=== PATIENT | male | born 1945 | race Caucasian/White ===

== ENCOUNTER 2018-12-07 03:37 | Inpatient (IN) | payer BC, OTHER ==
[2018-12-07 03:59] VITALS: BMI 27.3
--- NOTE | 2018-12-07 04:30 | PDOC ---
History of Present Illness - General Chief Complaint: Chest Pain Stated Complaint: CHEST PAIN Time Seen by Provider: 12/07/18 04:08 - History of Present Illness Initial Comments: Anthony Arredondo is a 73yo man with a PMH of HTN and HLD who presents with upper back and chest pain along with HTN to 170/99 at home today. He states that he woke up overnight with burning, aching pain along his b/l back shoulder blades. He thought it was muscle pain and tried taking a hot shower without any relief. He tried to lay down and noted that the pain had moved around into his anterior left shoulder and chest. Mr Arredondo took his BP at home and found it significantly elevated. He took his morning amlodipine, atenolol, and losartan along with 325mg ASA and came to the ED for evaluation. He notes that the pain had mostly resolved by the time he arrived, now only a slight ache in the left posterior and superior shoulder, though it was an 8/10 at worst. He was most concerned about the hypertension. He denies any associated nausea, vomiting, lightheadedness, difficulty breathing, sweating or other symptoms. He is not aware of any back or shoulder injury recently and denies any unusual activity though he does frequently do a lot of heavy lifting at work. Past History - Past Medical History Allergies/Adverse Reactions: Allergies Allergy/AdvReac Type Severity Reaction Status Date / Time No Known Allergies Allergy Verified 12/07/18 03:46 - Psycho Social/Smoking Cessation Hx Smoking History: Never smoked Have you smoked in the past 12 months: No Information on smoking cessation initiated: No Hx Alcohol Use: No Drug/Substance Use Hx: No Review of Systems - Review of Systems Comments:: General: No fevers, no chills, no weight or appetite change, no malaise HEENT: No changes in vision, no changes in hearing, no congestion, no sore throat CV: + chest pain, no palpitations, no LE edema Pulm: No SOB, no cough, no wheezing GI: No nausea or vomiting, no change in bowel habits, no melena : No frequency, no urgency, no dysuria Musc: +shoulder pain, no joint swelling, no recent injury Skin: No rash, no lesions, no erythema Endo: No excessive thirst, no heat/cold intolerance Heme: No unusual bruising or bleeding, no swollen glands Neuro: No syncope, no numbness/tingling, no focal weakness Vasc: No claudication Psych: No recent change in mood, no SI or HI *Physical Exam - Vital Signs Last Vital Signs Temp Pulse Resp BP Pulse Ox 97.9 F 64 20 155/82 98 12/07/18 03:57 12/07/18 03:57 12/07/18 03:57 12/07/18 03:57 12/07/18 03:57 - Physical Exam Comments: General: Comfortable, no acute distress HEENT: PERRL, EOMI, MMM, voice normal, normal neck ROM Cards: RRR, no murmur appreciated. No reproducible chest tenderness Pulm: Comfortable on room air, clear to auscultation bilaterally Abd: Soft, nontender, nondistended Back: No visible injury. Mildly TTP over inferior aspect of L scapula Ext: Atraumatic. No LE edema. ROM intact in BUE. WWP. Skin: Normal color, no rashes or lesions Neuro: A&Ox3, CN grossly intact, normal speech, motor/sensory grossly intact and symmetric, no focal deficits Psych: Mood appropriate to situation ED Treatment Course - LABORATORY CBC & Chemistry Diagram: 12/07/18 04:58 12/07/18 04:58 - RADIOLOGY Radiology Studies Ordered: Category Date Time Status CHEST PA & LAT [RAD] Stat Radiology 12/07/18 04:17 Ordered Medical Decision Making - Medical Decision Making 12/07/18 04:18 Anthony Arredondo is a 73yo man with a PMH of HTN and HLD who presents with upper back and chest pain along with HTN to 170/99 at home today. His pain started as 8/10 posterior shoulder pain, spread to the anterior chest, and has now mostly resolved with only mild pain in the posterior left shoulder. He denies any associated n/v, sweating, SOB or other symptoms. - Chest pain now nearly resolved and no associated symptoms, reassuring that symptoms do not represent VA but cannot rule out unstable angina. May also be musculoskeletal given majority of pain is at posterior shoulder. With significant HTN need to evaluate aorta - CBC, CMP, trop, EKG, CXR - Pt declines pain medication at this time - HTN now markedly improved to 155/82 after pt took home meds. Will monitor 12/07/18 05:39 - EKG sinus rhythem, HR 66, 1st degree block with MI 250ms, normal axis, long QRS at 114, QTc 457. Incomplete RBBB. Multiple PVC's. Pt reports known PVCs; had holter monitor in the past for evaluation. No recent EKG in chart for comparison; most recent was 2010 and at that time NSR - CXR without concerning abnormalities appreciated - Labs reviewed. Trop detectable at 0.05. Will repeat trop and EKG at 7am. 12/07/18 07:14 - Sign out given to Dr Garrett for the remainder of his ED care Discussed with Dr Maxi Roberson PGY2 Discharge - Discharge Information Problems reviewed: Yes Clinical Impression/Diagnosis: HTN (hypertension) Qualifiers: Hypertension type: unspecified Qualified Code(s): I10 - Essential (primary) hypertension Chest pain Qualifiers: Chest pain type: unspecified Qualified Code(s): R07.9 - Chest pain, unspecified - Follow up/Referral Referrals: Roe Shirley MD [Primary Care Provider] - - Patient Discharge Instructions - Post Discharge Activity
[2018-12-07 05:19] LABS: BASO % 0.8 % (0-2.0); EOS % 4.4 % (0-4.5); HEMATOCRIT 42.1 % (35.4-49); HEMOGLOBIN 14.8 GM/dL (11.7-16.9); LYMPH % 19.2 % (8-40); MCH 31.3 pg (25.7-33.7); MCHC 35.1 g/dl (32.0-35.9); MEAN CELL VOLUME 89.2 fl (80-96); MEAN PLT VOLUME 8.9 fl (7.5-11.1); MONO % 10.2 % (3.8-10.2); NEUT % 65.4 % (42.8-82.8); PLATELET COUNT 222 K/MM3 (134-434); RBC 4.72 M/mm3 (4.00-5.60); RDW 13.4 % (11.9-15.9); WHITE BLOOD COUNT 5.2 K/mm3 (4.0-10.0)
[2018-12-07 05:35] LABS: ALBUMIN 3.6 g/dl (3.4-5.0); BILIRUBIN,TOTAL 0.4 mg/dL (0.2-1); BLOOD UREA NITROGEN 24.2 mg/dL (7-18); CALCIUM 8.8 mg/dL (8.5-10.1); CREATININE 1.2 mg/dL (0.55-1.3); MAGNESIUM 2.4 mg/dL (1.8-2.4); POTASSIUM 3.8 mmol/L (3.5-5.1)
--- NOTE | 2018-12-07 05:40 | PDOC ---
Attending Attestation - Resident Resident Name: Jo Ann Roberson - ED Attending Attestation I have performed the following: I have examined & evaluated the patient, The case was reviewed & discussed with the resident, I agree w/resident's findings & plan - HPI HPI: 12/07/18 05:38 Pt comes with chest pain. - Physicial Exam PE: 12/07/18 05:38 Agree with resident exam - Medical Decision Making 12/07/18 05:38 Pt has normal labs; however first trop 0.06; though his CPK is only 64. We will repeat a 2nd trop in the AM and sign out to the day ER team. 12/07/18 05:39 CXR normal; normal mediastinum and aorta. Heart Score/ECG Review - ECG Intrepretation Rhythm: Regular Rhythm - Benge Benge: Normal - QRS Poor R Wave Progression: No Q Wave Present: No - ST and T Early Repolarization: No Non Specific ST-T Wave changes: No Flattened T Waves: No Prolonged Q-T Interval: No - ECG Impressions Normal ECG: Yes Non-specific ST Elevation: No Ischemic Changes: No Bradycardia: No Comment:: 12/07/18 05:42 PT has PVCs on EKG
--- NOTE | 2018-12-07 07:44 | PDOC ---
*Physical Exam - Vital Signs Last Vital Signs Temp Pulse Resp BP Pulse Ox 97.9 F 64 20 155/82 98 12/07/18 03:57 12/07/18 03:57 12/07/18 03:57 12/07/18 03:57 12/07/18 03:57 <Soham Garrett - Last Filed: 12/07/18 08:46> - Vital Signs Last Vital Signs Temp Pulse Resp BP Pulse Ox 97.9 F 64 20 155/82 98 12/07/18 03:57 12/07/18 03:57 12/07/18 03:57 12/07/18 03:57 12/07/18 03:57 <Ana Hansonchaitanya - Last Filed: 12/07/18 08:55> ED Treatment Course - LABORATORY CBC & Chemistry Diagram: 12/07/18 04:58 12/07/18 04:58 - ADDITIONAL ORDERS Additional order review: Laboratory Results 12/07/18 12/07/18 12/07/18 07:00 04:58 04:58 Sodium 142 Potassium 3.8 Chloride 106 Carbon Dioxide 31 Anion Gap 5 L BUN 24.2 H Creatinine 1.2 Est GFR (CKD-EPI)AfAm 70.09 Est GFR (CKD-EPI)NonAf 60.47 Random Glucose 108 H Calcium 8.8 Magnesium 2.4 Total Bilirubin 0.4 AST 15 ALT 18 Alkaline Phosphatase 49 Creatine Kinase 64 Troponin I 0.28 H 0.06 H Total Protein 7.0 Albumin 3.6 12/07/18 04:58 RBC 4.72 MCV 89.2 MCHC 35.1 RDW 13.4 MPV 8.9 Neutrophils % 65.4 Lymphocytes % 19.2 Monocytes % 10.2 Eosinophils % 4.4 Basophils % 0.8 <Soham Garrett - Last Filed: 12/07/18 08:46> - LABORATORY CBC & Chemistry Diagram: 12/07/18 04:58 12/07/18 04:58 - ADDITIONAL ORDERS Additional order review: Laboratory Results 12/07/18 12/07/18 12/07/18 07:00 04:58 04:58 Sodium 142 Potassium 3.8 Chloride 106 Carbon Dioxide 31 Anion Gap 5 L BUN 24.2 H Creatinine 1.2 Est GFR (CKD-EPI)AfAm 70.09 Est GFR (CKD-EPI)NonAf 60.47 Random Glucose 108 H Calcium 8.8 Magnesium 2.4 Total Bilirubin 0.4 AST 15 ALT 18 Alkaline Phosphatase 49 Creatine Kinase 64 Troponin I 0.28 H 0.06 H Total Protein 7.0 Albumin 3.6 12/07/18 04:58 RBC 4.72 MCV 89.2 MCHC 35.1 RDW 13.4 MPV 8.9 Neutrophils % 65.4 Lymphocytes % 19.2 Monocytes % 10.2 Eosinophils % 4.4 Basophils % 0.8 <Ana Hanson - Last Filed: 12/07/18 08:55> Medical Decision Making - Medical Decision Making 12/07/18 07:[address] Roberson. Patient is a 73 yo male w/ pmh of HTN and HLD who presented for evaluation of back and shoulder blade pain he woke up with this morning. Patient also reported elevated home BP to 170/99 however reported this improved taking his home BP meds. Chest pain evaluation by previous team significant for troponin to 0.06. EKG normal sinus w/ 1st degree block. Multiple PVCs. 2nd troponin currently pending. Patient took 325 ASA before presenting and reports his pain has resolved at this time. 12/07/18 07:44 2nd troponin elevated to 0.28. 2nd EKG done 6am revealed normal sinus rhythm. 3rd EKG pending. Grubber Dr. Garner called. 12/07/18 08:01 Discussed with covering provider for Dr. Garner who reports he no longer covers hospital. Suggested admission and transfer as needed. In house hospitalist paged. Cardiology paged. 3rd EKG unchanged w/ sinus rhythm; 1st degree AV block noted. <Soham Garrett - Last Filed: 12/07/18 08:46> - Medical Decision Making s/o from Dr German pending trop next trop increased to 0.28 EKG unchanged, nonspecific TWF in III, AVF no elevation in ST segments 1st deg HB. s/p ASA earlier prior to presentation call to cards, Dr Garner. 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 12/07/18 08:52 <Ana Hanson - Last Filed: 12/07/18 08:55> Discharge - Discharge Information Problems reviewed: Yes - Admission Yes <Soham Garrett - Last Filed: 12/07/18 08:46> <MargieAnahandy Allen - Last Filed: 12/07/18 08:55> - Discharge Information Clinical Impression/Diagnosis: Non-ST elevation [place] (NSTEMI) HTN (hypertension) Qualifiers: Hypertension type: unspecified Qualified Code(s): I10 - Essential (primary) hypertension Chest pain Qualifiers: Chest pain type: unspecified Qualified Code(s): R07.9 - Chest pain, unspecified - Follow up/Referral Referrals: Roe Shirley MD [Primary Care Provider] - - Patient Discharge Instructions - Post Discharge Activity
--- NOTE | 2018-12-07 09:05 | PN ---
Teaching Attending Note Name of Resident: Mendez Fierro ATTENDING PHYSICIAN STATEMENT I saw and evaluated the patient. I reviewed the resident's note and discussed the case with the resident. I agree with the resident's findings and plan as documented. SUBJECTIVE: Patient is a 73 year old male with a PMHx of HTN, HLD, hx of prostate CA (s/p prostatectomy) presented to the hospital c/o having L posterior shoulder pain and band-like tightness around his chest around 4:30 am when he woke up to go to work. Reported BP at home was 170/99, reports taking his home medications Norvasc, atenelol and Losartan . Then came to ED.for further care. Denies having any chest pain or palpitation. OBJECTIVE: Vital Signs Temperature 97.9 F 12/07/18 03:57 Pulse Rate 64 12/07/18 03:57 Respiratory Rate 20 12/07/18 03:57 Blood Pressure 155/82 12/07/18 03:57 O2 Sat by Pulse Oximetry (%) 98 12/07/18 03:57 GENERAL: The patient is awake, alert, and fully oriented, in no acute distress. HEAD: Normal with no signs of trauma. EYES: PERRL, extraocular movements intact, sclera anicteric, conjunctiva clear. ENT: Ears normal, oropharynx clear without exudates, moist mucous membranes. NECK: Trachea midline, full range of motion, supple. LUNGS: Breath sounds equal, clear to auscultation bilaterally, no wheezes, no crackles, no accessory muscle use. HEART: Regular rate and rhythm, S1, S2 without murmur, rub or gallop. ABDOMEN: Soft, NT,ND, normoactive bowel sounds, no guarding, no rebound, no hepatosplenomegaly, no masses. EXTREMITIES: 2+ pulses, warm, well-perfused, no edema. NEUROLOGICAL: Cranial nerves II through XII grossly intact. Normal speech, gait not observed. PSYCH: Normal mood, normal affect. SKIN: Warm, dry, normal turgor, no rashes or lesions noted CBCD WBC 5.2 K/mm3 (4.0-10.0) 12/07/18 04:58 RBC 4.72 M/mm3 (4.00-5.60) 12/07/18 04:58 Hgb 14.8 GM/dL (11.7-16.9) 12/07/18 04:58 Hct 42.1 % (35.4-49) 12/07/18 04:58 MCV 89.2 fl (80-96) 12/07/18 04:58 MCHC 35.1 g/dl (32.0-35.9) 12/07/18 04:58 RDW 13.4 % (11.9-15.9) 12/07/18 04:58 Plt Count 222 K/MM3 (134-434) 12/07/18 04:58 MPV 8.9 fl (7.5-11.1) 12/07/18 04:58 CMP Sodium 142 mmol/L (136-145) 12/07/18 04:58 Potassium 3.8 mmol/L (3.5-5.1) 12/07/18 04:58 Chloride 106 mmol/L (98-107) 12/07/18 04:58 Carbon Dioxide 31 mmol/L (21-32) 12/07/18 04:58 Anion Gap 5 MMOL/L (8-16) L 12/07/18 04:58 BUN 24.2 mg/dL (7-18) H 12/07/18 04:58 Creatinine 1.2 mg/dL (0.55-1.3) 12/07/18 04:58 Random Glucose 108 mg/dL (74-106) H 12/07/18 04:58 Calcium 8.8 mg/dL (8.5-10.1) 12/07/18 04:58 Total Bilirubin 0.4 mg/dL (0.2-1) 12/07/18 04:58 AST 15 U/L (15-37) 12/07/18 04:58 ALT 18 U/L (13-61) 12/07/18 04:58 Alkaline Phosphatase 49 U/L (45-117) 12/07/18 04:58 Total Protein 7.0 g/dl (6.4-8.2) 12/07/18 04:58 Albumin 3.6 g/dl (3.4-5.0) 12/07/18 04:58 CARDIAC ENZYMES Creatine Kinase 64 U/L (26-308) 12/07/18 04:58 Troponin I 0.28 ng/ml (0.00-0.05) H 12/07/18 07:00 Home Medications Medication Instructions Recorded Amlodipine Besylate [Norvasc -] 10 mg PO DAILY 12/07/18 Aspirin [ASA -] 325 mg PO DAILY 12/07/18 Aspirin [Sarahy Chewable] 81 mg PO HS 12/07/18 Atenolol [Tenormin] 100 mg PO DAILY 12/07/18 Levothyroxine [Synthroid -] 75 mcg PO 0200 12/07/18 Losartan Potassium [Cozaar -] 25 mg PO DAILY 12/07/18 Pravastatin Sodium 0 mg PO HS 12/07/18 hydrALAZINE HCL [Apresoline -] 0 mg PO ASDIR PRN 12/07/18 ASSESSMENT AND PLAN: Patient is a 73 year old male with a past medical history of hypertension, hyperlipidemia, hx of prostate CA (s/p prostatectomy) presented to the hospital with L posterior shoulder pain and band-like tightness around his chest around 4 :30 am when he woke up for work. #Acute chest Pain: with elevated trops. agency trainer seen the patient , transferring the patient to [facility]. CTA was done with no aortic aneurysm given per cardiology, BB, plavix 600, lovenox 1mg/kg BID, and transferred for cath at [place] today.Lipitor ordered as well. Discussed with , tx the patient for cath. to [facility].
[2018-12-07] MEDS ORDERED: ATORVASTATIN CA 80 MG TABLET (FP) PO ONE (09:08)
--- NOTE | 2018-12-07 09:18 | CON.CARD ---
Consult Consult Specialty:: Cardiology Reason for Consultation:: nonstemi - History of Present Illness Chief Complaint: chest/back pain History of Present Illness: Anthony Arredondo is a 73yo man with a PMH of HTN and HLD who presents with upper back and chest pain along with HTN to 170/99 at home today. He states that he woke up overnight with burning, aching pain along his b/l back shoulder blades. He thought it was muscle pain and tried taking a hot shower without any relief. He tried to lay down and noted that the pain had moved around into his anterior left shoulder and chest. Mr Arredondo took his BP at home and found it significantly elevated. He took his morning amlodipine, atenolol, and losartan along with 325mg ASA and came to the ED for evaluation. He notes that the pain had mostly resolved by the time he arrived, now only a slight ache in the left posterior and superior shoulder, though it was an 8/10 at worst. He was most concerned about the hypertension. He denies any associated nausea, vomiting, lightheadedness, difficulty breathing, sweating or other symptoms. He is not aware of any back or shoulder injury recently and denies any unusual activity though he does frequently do a lot of heavy lifting at work. PMHH f/u by [facility] St[facility] at [facility] ascending aortic aneurysm "getting bigger" unsure what size recent "negative" MIBI at suboptimal HR - History Source History Provided By: Patient, Medical Record - Alcohol/Substance Use Hx Alcohol Use: No - Smoking History Smoking history: Never smoked Have you smoked in the past 12 months: No Home Medications - Allergies Allergies/Adverse Reactions: Allergies Allergy/AdvReac Type Severity Reaction Status Date / Time No Known Allergies Allergy Verified 12/07/18 03:46 - Home Medications Home Medications: Ambulatory Orders Amlodipine Besylate [Norvasc -] 10 mg PO DAILY 12/07/18 Aspirin [ASA -] 325 mg PO DAILY 12/07/18 Aspirin [Sarahy Chewable] 81 mg PO HS 12/07/18 Atenolol [Tenormin] 100 mg PO DAILY 12/07/18 Levothyroxine [Synthroid -] 75 mcg PO 0200 12/07/18 Losartan Potassium [Cozaar -] 25 mg PO DAILY 12/07/18 Pravastatin Sodium 0 mg PO HS 12/07/18 hydrALAZINE HCL [Apresoline -] 0 mg PO ASDIR PRN 12/07/18 Review of Systems - Review of Systems Constitutional: reports: No Symptoms Eyes: reports: No Symptoms HENT: reports: No Symptoms Neck: reports: No Symptoms Cardiovascular: reports: Chest Pain Respiratory: reports: No Symptoms Gastrointestinal: reports: No Symptoms Genitourinary: reports: No Symptoms Breasts: reports: No Symptoms Reported Musculoskeletal: reports: No Symptoms Integumentary: reports: No Symptoms Neurological: reports: No Symptoms Endocrine: reports: No Symptoms Hematology/Lymphatic: reports: No Symptoms Psychiatric: reports: No Symptoms Vital Signs: Vital Signs Temperature 97.9 F 12/07/18 03:57 Pulse Rate 64 12/07/18 03:57 Respiratory Rate 20 12/07/18 03:57 Blood Pressure 155/82 12/07/18 03:57 O2 Sat by Pulse Oximetry (%) 98 12/07/18 03:57 Constitutional: Yes: Well Nourished, No Distress, Calm Eyes: Yes: WNL, Conjunctiva Clear, EOM Intact HENT: Yes: WNL, Atraumatic, Normocephalic Neck: Yes: WNL, Supple, Trachea Midline Respiratory: Yes: WNL, Regular, CTA Bilaterally Gastrointestinal: Yes: WNL, Normal Bowel Sounds Renal/: Yes: WNL Cardiovascular: Yes: WNL, Regular Rate and Rhythm Heart Sounds: Yes: S1, S2 Musculoskeletal: Yes: WNL Extremities: Yes: WNL Integumentary: Yes: WNL Neurological: Yes: WNL, Alert, Oriented ...Motor Strength: WNL Psychiatric: Yes: WNL, Alert, Oriented - Other Data Labs, Other Data: CBC, BMP 12/07/18 04:58 12/07/18 04:58 Troponin, BNP 12/07/18 12/07/18 04:58 07:00 Troponin I 0.06 H 0.28 H Troponin, BNP 12/07/18 12/07/18 04:58 07:00 Troponin I 0.06 H 0.28 H Imaging - Results Chest X-ray: Image Reviewed (sclerotic aortic knob) EKG: Image Reviewed (sr 1avb rep abn) Problem List - Problems (1) Chest pain Code(s): R07.9 - CHEST PAIN, UNSPECIFIED Qualifiers: Chest pain type: unspecified Qualified Code(s): R07.9 - Chest pain, unspecified (2) HTN (hypertension) Code(s): I10 - ESSENTIAL (PRIMARY) HYPERTENSION Qualifiers: Hypertension type: unspecified Qualified Code(s): I10 - Essential (primary ) hypertension (3) Non-ST elevation AL (NSTEMI) Code(s): I21.4 - NON-ST ELEVATION (NSTEMI) MYOCARDIAL INFARCTION Assessment/Plan nonstemi htn hlp hypothyroidism r/o dissecting ascending aneurysm CTA neg aortic root 4 cm Plan; BB, Plavix 600, lovenox 1mg/kg BID, transfer for c. cath to [facility] (initiated via transfer center at 10 35 AM)
--- NOTE | 2018-12-07 09:29 | EKG ---
Test Reason : Blood Pressure : / mmHG Vent. Rate : 066 BPM Atrial Rate : 066 BPM P-R Int : 250 ms QRS Dur : 114 ms QT Int : 436 ms P-R-T Axes : 078 017 018 degrees QTc Int : 457 ms SINUS RHYTHM WITH 1ST DEGREE A-V BLOCK WITH OCCASIONAL PREMATURE VENTRICULAR COMPLEXES INCOMPLETE RIGHT BUNDLE BRANCH BLOCK BORDERLINE ECG WHEN COMPARED WITH ECG OF 08-OCT-2010 23:36, PREMATURE VENTRICULAR COMPLEXES ARE NOW PRESENT DC INTERVAL HAS INCREASED Confirmed by BRENDON HIDALGO, DILSHAD ([id number]) on 12/07/2018 9:28:57 AM Referred By: Confirmed By:DILSHAD OLIVAS MD
--- NOTE | 2018-12-07 09:29 | EKG ---
Test Reason : Blood Pressure : / mmHG Vent. Rate : 053 BPM Atrial Rate : 053 BPM P-R Int : 266 ms QRS Dur : 104 ms QT Int : 448 ms P-R-T Axes : 072 004 008 degrees QTc Int : 420 ms SINUS BRADYCARDIA WITH 1ST DEGREE A-V BLOCK OTHERWISE NORMAL ECG WHEN COMPARED WITH ECG OF 07-DEC-2018 03:43, PREMATURE VENTRICULAR COMPLEXES ARE NO LONGER PRESENT Confirmed by BRENDON HIDALGO, DILSHAD ([id number]) on 12/07/2018 9:28:49 AM Referred By: Confirmed By:DILSHAD OLIVAS MD
[2018-12-07] MEDS ORDERED: ATORVASTATIN CA 80 MG TABLET (FP) ONE (09:51)
[2018-12-07] MEDS ORDERED: CLOPIDOGREL BISULFATE 300 MG TABLET PO ONE (10:31)
[2018-12-07] MEDS ORDERED: ENOXAPARIN NA (PORCINE) 100 MG/1 ML DISP.SYRIN SQ ONE (10:42)
[2018-12-07] MEDS ORDERED: CLOPIDOGREL BISULFATE 300 MG TABLET ONE (10:42)
[2018-12-07] MEDS ORDERED: ENOXAPARIN NA (PORCINE) 100 MG/1 ML DISP.SYRIN SQ SCH (10:45)
--- NOTE | 2018-12-07 12:10 | DS ---
Physical Exam: HOSPITAL COURSE: Date of Admission:12/07/18 73 year old male with a past medical history of hypertension, hyperlipidemia, hx of prostate CA (s/p prostatectomy) presented to the hospital with L posterior shoulder pain and band-like tightness around his chest around 4:30 am when he woke up for work. Reported BP at home was 170/99. Reports then taking his home medications and his aspirin without relief before coming to the hospital. 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 states that he has followed up with his stonework supervisor since then, but he was not scheduled for a repeat test. States that his echo showed a stable thoracic aortic aneurysm. Denies ever having a catheterization in the past. Currently patient reports that his pain has completely resolved and denies any symptoms. In the ED, patients troponin ochoa from 0.06 to 0.28. EKG showed EKG sinus with 1st degree AV block, incomplete RBBB, premature ventricular complexes. Per Cardiology, gave BB, plavix 600, lovenox 1mg/kg BID, and transferred for cath at [place] today. CTA did not reveal evidence of thoracic or abdominal aortic aneurysm. Date of Discharge: 12/07/18 Minutes to complete discharge: 35 Discharge Summary Problems reviewed: Yes Reason For Visit: NON ST ELEVATION MYOCARDIAL INFARCTION/ Current Active Problems Chest pain (Acute) HTN (hypertension) (Acute) Non-ST elevation [place] (NSTEMI) (Acute) - Instructions Referrals: Roe Shirley MD [Primary Care Provider] - - Home Medications Comprehensive Discharge Medication List: Ambulatory Orders Amlodipine Besylate [Norvasc -] 10 mg PO DAILY 12/07/18 Aspirin [ASA -] 325 mg PO DAILY 12/07/18 Aspirin [Sarahy Chewable] 81 mg PO HS 12/07/18 Atenolol [Tenormin] 100 mg PO DAILY 12/07/18 Levothyroxine [Synthroid -] 75 mcg PO 0200 12/07/18 Losartan Potassium [Cozaar -] 25 mg PO DAILY 12/07/18 Pravastatin Sodium 0 mg PO HS 12/07/18 hydrALAZINE HCL [Apresoline -] 0 mg PO ASDIR PRN 12/07/18 This patient is new to me today: Yes Date on this admission: 12/07/18 Emergency Visit: Yes ED Registration Date: 12/07/18 Care time: The patient presented to the Emergency Department on the above date and was hospitalized for further evaluation of their emergent condition. Critical Care patient: No - Discharge Referral Referred to [facility] No ATTENDING PHYSICIAN STATEMENT I saw and evaluated the patient. I reviewed the resident's note and discussed the case with the resident. I agree with the resident's findings and plan as documented. SUBJECTIVE: OBJECTIVE: ASSESSMENT AND PLAN:
--- NOTE | 2018-12-07 12:10 | HP ---
CHIEF COMPLAINT: shoulder pain HISTORY OF PRESENT ILLNESS: 73 year old male with a past medical history of hypertension, hyperlipidemia, hx of prostate CA (s/p prostatectomy) presented to the hospital with L posterior shoulder pain and band-like tightness around his chest around 4:30 am when he woke up for work. Reported BP at home was 170/99. Reports then taking his home medications and his aspirin without relief before coming to the hospital. 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 states that he has followed up with his highway maintenance technician since then, but he was not scheduled for a repeat test. States that his echo showed a stable thoracic aortic aneurysm. Denies ever having a catheterization in the past. Currently patient reports that his pain has completely resolved and denies any symptoms. ER course was notable for: (1) trop .06 -> .08 (2) EKG sinus with 1st degree AV block, incomplete RBBB, premature ventricular complexes (3) Recent Travel: denies PAST MEDICAL HISTORY: HTN, HLD, thoracic aortic aneurysm PAST SURGICAL HISTORY: inguinal hernia repair on R and radical prostatectomy Social History: Smoking: former, between ages 17 and 57; 1ppd Alcohol: denies Drugs: denies Family History: father passed at 45 years old from ruptured aortic aneurysm, grandfather of heart failure Allergies No Known Allergies Allergy (Verified 12/07/18 03:46) HOME MEDICATIONS: Home Medications Medication Instructions Recorded Amlodipine Besylate [Norvasc -] 10 mg PO DAILY 12/07/18 Aspirin [ASA -] 325 mg PO DAILY 12/07/18 Aspirin [Sarahy Chewable] 81 mg PO HS 12/07/18 Atenolol [Tenormin] 100 mg PO DAILY 12/07/18 Levothyroxine [Synthroid -] 75 mcg PO 0200 12/07/18 Losartan Potassium [Cozaar -] 25 mg PO DAILY 12/07/18 Pravastatin Sodium 0 mg PO HS 12/07/18 hydrALAZINE HCL [Apresoline -] 0 mg PO ASDIR PRN 12/07/18 REVIEW OF SYSTEMS CONSTITUTIONAL: Absent: fever, chills, diaphoresis, generalized weakness, malaise, loss of appetite, weight change HEENT: Absent: rhinorrhea, nasal congestion, throat pain, throat swelling, difficulty swallowing, mouth swelling, ear pain, eye pain, visual changes CARDIOVASCULAR: Absent: chest pain, syncope, palpitations, irregular heart rate, lightheadedness , peripheral edema RESPIRATORY: Absent: cough, shortness of breath, dyspnea with exertion, orthopnea, wheezing, stridor, hemoptysis GASTROINTESTINAL: Absent: abdominal pain, abdominal distension, nausea, vomiting, diarrhea, constipation, melena, hematochezia GENITOURINARY: Absent: dysuria, frequency, urgency, hesitancy, hematuria, flank pain, genital pain MUSCULOSKELETAL: Absent: myalgia, arthralgia, joint swelling, back pain, neck pain SKIN: Absent: rash, itching, pallor HEMATOLOGIC/IMMUNOLOGIC: Absent: easy bleeding, easy bruising, lymphadenopathy, frequent infections ENDOCRINE: Absent: unexplained weight gain, unexplained weight loss, heat intolerance, cold intolerance NEUROLOGIC: Absent: headache, focal weakness or paresthesias, dizziness, unsteady gait, seizure, mental status changes, bladder or bowel incontinence PSYCHIATRIC: Absent: anxiety, depression, suicidal or homicidal ideation, hallucinations. PHYSICAL EXAMINATION Vital Signs - 24 hr 12/07/18 12/07/18 03:57 09:00 Temperature 97.9 F Pulse Rate 64 Pulse Rate [ 61 Apical] Respiratory 20 18 Rate Blood Pressure 155/82 Blood Pressure 156/89 [Right Arm] O2 Sat by Pulse 98 99 Oximetry (%) GENERAL: A&Ox3, no acute distress EYES: PERRLA, EOMI ENT: Moist mucus membranes NECK: No JVD LUNGS: CTA, no wheezes HEART: RRR, no murmurs ABDOMEN: Soft, nontender, BS present MUSCULOSKELETAL: No CVA Tenderness EXTREMITIES: 2+ pulses, no edema. NEUROLOGICAL: Cranial nerves II-XII intact. Laboratory Results - last 24 hr 12/07/18 12/07/18 12/07/18 04:58 04:58 04:58 WBC 5.2 RBC 4.72 Hgb 14.8 Hct 42.1 MCV 89.2 MCH 31.3 MCHC 35.1 RDW 13.4 Plt Count 222 MPV 8.9 Absolute Neuts (auto) 3.4 Neutrophils % 65.4 Lymphocytes % 19.2 Monocytes % 10.2 Eosinophils % 4.4 Basophils % 0.8 Nucleated RBC % 1 H Sodium 142 Potassium 3.8 Chloride 106 Carbon Dioxide 31 Anion Gap 5 L BUN 24.2 H Creatinine 1.2 Est GFR (CKD-EPI)AfAm 70.09 Est GFR (CKD-EPI)NonAf 60.47 Random Glucose 108 H Calcium 8.8 Magnesium 2.4 Total Bilirubin 0.4 AST 15 ALT 18 Alkaline Phosphatase 49 Creatine Kinase 64 Troponin I 0.06 H Total Protein 7.0 Albumin 3.6 12/07/18 07:00 WBC RBC Hgb Hct MCV MCH MCHC RDW Plt Count MPV Absolute Neuts (auto) Neutrophils % Lymphocytes % Monocytes % Eosinophils % Basophils % Nucleated RBC % Sodium Potassium Chloride Carbon Dioxide Anion Gap BUN Creatinine Est GFR (CKD-EPI)AfAm Est GFR (CKD-EPI)NonAf Random Glucose Calcium Magnesium Total Bilirubin AST ALT Alkaline Phosphatase Creatine Kinase Troponin I 0.28 H Total Protein Albumin ASSESSMENT/PLAN: 73 year old male with a past medical history of hypertension, hyperlipidemia, hx of prostate CA (s/p prostatectomy) presented to the hospital with L posterior shoulder pain and band-like tightness around his chest around 4:30 am when he woke up for work. #Chest Pain: could be due to NSTEMI vs dissecting aortic aneurysm -per cardiology, gave BB, plavix 600, lovenox 1mg/kg BID, and transferred for cath at [facility] today. -will not be going up to floor Visit type - Emergency Visit Emergency Visit: No - New Patient This patient is new to me today: Yes Date on this admission: 12/07/18 - Critical Care Critical Care patient: No ATTENDING PHYSICIAN STATEMENT I saw and evaluated the patient. I reviewed the resident's note and discussed the case with the resident. I agree with the resident's findings and plan as documented. SUBJECTIVE: OBJECTIVE: ASSESSMENT AND PLAN:
[2018-12-07 13:44] VITALS: TEMP 97.2
[2018-12-07 14:26] VITALS: BP 158/84; PULSE 56
[2018-12-08] MEDS ORDERED: LEVOTHYROXINE NA 75 MCG TABLET (FP) PO SCH (07:00)
--- NOTE | 2018-12-09 11:06 | EKG ---
Test Reason : Blood Pressure : / mmHG Vent. Rate : 054 BPM Atrial Rate : 054 BPM P-R Int : 256 ms QRS Dur : 098 ms QT Int : 444 ms P-R-T Axes : 068 008 011 degrees QTc Int : 421 ms SINUS BRADYCARDIA WITH 1ST DEGREE A-V BLOCK OTHERWISE NORMAL ECG WHEN COMPARED WITH ECG OF 07-DEC-2018 06:19, NO SIGNIFICANT CHANGE WAS FOUND Confirmed by Rex Castro MD ([id number]) on 12/09/2018 11:06:03 AM Referred By: Confirmed By:Rex Castro MD
== END 2018-12-07 14:31 | disposition short-term general hospital (02) | DRG 282 ==
LOC: JER 03:37 → JERBED 08:08
PROVIDERS: ADMIT Internal Medicine; ATTEND Internal Medicine
DX: I21.4 Non-ST elevation (NSTEMI) myocardial infarction (principal); I10 Essential (primary) hypertension; E78.5 Hyperlipidemia, unspecified; I71.2 Thoracic aortic aneurysm, without rupture; E03.9 Hypothyroidism, unspecified; I44.0 Atrioventricular block, first degree; I45.10 Unspecified right bundle-branch block; Z85.46 Personal history of malignant neoplasm of prostate
CPT/HCPCS: 36415; 71046-TC-FY; 71275-TC; 74174-TC; 80053; 82550; 83735; 84484; 85025; 93005; 93010; 99285-25

== ENCOUNTER 2021-07-25 16:41 | Observation (INO) | payer BC, OTHER ==
[2021-07-25 17:31] VITALS: BMI 26.7
[2021-07-25 18:59] LABS: BASO % 0.8 % (0-2.0); EOS % 1.7 % (0-4.5); HEMATOCRIT 34.7 % (35.4-49); HEMOGLOBIN 11.3 GM/dL (11.7-16.9); MCH 24.7 pg (25.7-33.7); MCHC 32.7 g/dl (32.0-35.9); MEAN CELL VOLUME 75.6 fl (80-96); MEAN PLT VOLUME 8.2 fl (7.5-11.1); MONO % 8.4 % (3.8-10.2); NEUT % 79.1 % (42.8-82.8); PLATELET COUNT 256 10^3/uL (134-434); RBC 4.59 M/mm3 (4.00-5.60); RDW 18.1 % (11.9-15.9); WHITE BLOOD COUNT 9.1 K/mm3 (4.0-10.0)
[2021-07-25 19:16] LABS: CALCIUM 9.2 mg/dL (8.5-10.1)
[2021-07-25 19:17] LABS: ALBUMIN 3.9 g/dl (3.4-5.0); BLOOD UREA NITROGEN 19.3 mg/dL (7-18)
[2021-07-25 19:20] LABS: CREATININE 1.1 mg/dL (0.55-1.3)
[2021-07-25 19:21] LABS: BILIRUBIN,TOTAL 0.5 mg/dL (0.2-1)
[2021-07-25 19:22] LABS: TOT PROT 7.6 g/dl (6.4-8.2)
[2021-07-25 22:00] LABS: PH,URINE 8.5 (5.0-8.0); URINE APPEARANCE CLEAR; URINE BILIRUBIN NEGATIVE (NEGATIVE); URINE COLOR YELLOW; URINE GLUCOSE (UA) NEGATIVE (NEGATIVE); URINE KETONE NEGATIVE (NEGATIVE); URINE LEUK ESTERASE NEGATIVE (NEGATIVE); URINE NITRITE NEGATIVE (NEGATIVE); URINE PROTEIN NEGATIVE (NEGATIVE); URINE UROBILINOGEN 0.2 mg/dL (0.2-1.0)
[2021-07-26] MEDS ORDERED: ACETAMINOPHEN 325 MG TABLET (FP) ONE (03:49)
[2021-07-26] MEDS: ACETAMINOPHEN 325 MG TABLET (FP) PO PRN ×3 (03:55→23:20)
[2021-07-26 06:56] LABS: HEMATOCRIT 33.5 % (35.4-49); HEMOGLOBIN 10.8 GM/dL (11.7-16.9); MCH 24.6 pg (25.7-33.7); MCHC 32.4 g/dl (32.0-35.9); MEAN PLT VOLUME 8.4 fl (7.5-11.1); PLATELET COUNT 233 10^3/uL (134-434); RBC 4.41 M/mm3 (4.00-5.60); RDW 17.8 % (11.9-15.9); WHITE BLOOD COUNT 8.1 K/mm3 (4.0-10.0)
[2021-07-26 07:21] LABS: CALCIUM 8.9 mg/dL (8.5-10.1)
[2021-07-26 07:22] LABS: ALBUMIN 3.8 g/dl (3.4-5.0); BLOOD UREA NITROGEN 15.4 mg/dL (7-18); MAGNESIUM 2.4 mg/dL (1.8-2.4)
[2021-07-26 07:24] LABS: PHOSPHOROUS 2.5 mg/dL (2.5-4.9)
[2021-07-26 07:25] LABS: CREATININE 1.1 mg/dL (0.55-1.3)
[2021-07-26 07:26] LABS: BILIRUBIN,TOTAL 0.8 mg/dL (0.2-1); TOT PROT 7.2 g/dl (6.4-8.2)
[2021-07-26] MEDS ORDERED: LEVOTHYROXINE NA 50 MCG TABLET (FP) ONE (07:29)
[2021-07-26] MEDS: LEVOTHYROXINE NA 100 MCG TABLET (FP) PO SCH (07:39)
[2021-07-26] MEDS ORDERED: POTASSIUM CHLORIDE TABS 20 MEQ TABLET.ER (FP) PO ONE ×2 (07:51→09:04)
[2021-07-26] MEDS: ASPIRIN 81 MG CHEWABLE TABLETS PO SCH (09:00)
[2021-07-26] MEDS: amLODIPine BESYLATE 10 MG TABLET (FP) PO SCH (09:00)
[2021-07-26] MEDS: LOSARTAN POTASSIUM 50 MG TABLET PO SCH (09:00)
[2021-07-26] MEDS ORDERED: ASPIRIN 81 MG CHEWABLE TABLETS ONE (09:05)
[2021-07-26] MEDS ORDERED: amLODIPine BESYLATE 10 MG TABLET (FP) ONE (09:05)
[2021-07-26] MEDS ORDERED: LOSARTAN POTASSIUM 50 MG TABLET ONE (09:05)
[2021-07-26] MEDS: ATENOLOL 50 MG TABLET (FP) PO SCH (12:02)
[2021-07-26] MEDS: RIVAROXABAN 20 MG TABLET PO SCH (17:16)
[2021-07-26] MEDS: ATORVASTATIN CA 80 MG TABLET (FP) PO SCH (21:39)
[2021-07-26] MEDS: MELATONIN 5 MG TABLETS PO PRN (21:39)
[2021-07-27] MEDS: LEVOTHYROXINE NA 100 MCG TABLET (FP) PO SCH (06:00)
[2021-07-27 06:39] LABS: BASO % 0.6 % (0-2.0); EOS % 2.1 % (0-4.5); HEMATOCRIT 35.4 % (35.4-49); HEMOGLOBIN 11.6 GM/dL (11.7-16.9); LYMPH % 14.5 % (8-40); MCH 24.9 pg (25.7-33.7); MCHC 32.6 g/dl (32.0-35.9); MEAN CELL VOLUME 76.3 fl (80-96); MEAN PLT VOLUME 8.3 fl (7.5-11.1); MONO % 10.5 % (3.8-10.2); NEUT % 72.3 % (42.8-82.8); PLATELET COUNT 206 10^3/uL (134-434); RBC 4.64 M/mm3 (4.00-5.60); RDW 17.7 % (11.9-15.9); WHITE BLOOD COUNT 6.7 K/mm3 (4.0-10.0)
[2021-07-27 07:13] LABS: ALBUMIN 3.5 g/dl (3.4-5.0); BLOOD UREA NITROGEN 14.1 mg/dL (7-18); CALCIUM 8.8 mg/dL (8.5-10.1); MAGNESIUM 2.3 mg/dL (1.8-2.4)
[2021-07-27 07:18] LABS: BILIRUBIN,TOTAL 1.4 mg/dL (0.2-1); TOT PROT 7.1 g/dl (6.4-8.2)
[2021-07-27] MEDS: POTASSIUM CHLORIDE TABS 20 MEQ TABLET.ER (FP) PO SCH ×2 (09:54→21:27)
[2021-07-27] MEDS: ATENOLOL 50 MG TABLET (FP) PO SCH ×2 (09:55→09:58)
[2021-07-27] MEDS: amLODIPine BESYLATE 10 MG TABLET (FP) PO SCH (09:55)
[2021-07-27] MEDS: ASPIRIN 81 MG CHEWABLE TABLETS PO SCH (09:55)
[2021-07-27] MEDS: LOSARTAN POTASSIUM 50 MG TABLET PO SCH (09:59)
[2021-07-27] MEDS: ACETAMINOPHEN 325 MG TABLET (FP) PO PRN (09:59)
[2021-07-27] MEDS ORDERED: oxyCODONE HCL 5 MG TABLET PO PRN (11:34)
[2021-07-27] MEDS: POLYETHYLENE GLYCOL (HEALTHYLAX) 3350 17 GM PACKET PO SCH ×2 (12:32→21:27)
[2021-07-27] MEDS: LIDOCAINE 5% TOPICAL PATCH TP SCH (12:32)
[2021-07-27] MEDS: ACETAMINOPHEN 500 MG TABLET (FP) PO SCH ×2 (12:32→17:54)
[2021-07-27] MEDS: RIVAROXABAN 20 MG TABLET PO SCH (17:53)
[2021-07-27] MEDS: oxyCODONE HCL 5 MG TABLET PO PRN (21:25)
[2021-07-27] MEDS: DOCUSATE SODIUM 100 MG CAPSULE (FP) PO SCH (21:27)
[2021-07-27] MEDS: ATORVASTATIN CA 80 MG TABLET (FP) PO SCH (21:27)
[2021-07-27] MEDS: LIDOCAINE PATCH REMOVAL MC SCH (22:34)
[2021-07-28] MEDS: ACETAMINOPHEN 500 MG TABLET (FP) PO SCH ×4 (04:06→17:15)
[2021-07-28] MEDS: LEVOTHYROXINE NA 100 MCG TABLET (FP) PO SCH (06:08)
[2021-07-28 07:12] LABS: BASO % 0.9 % (0-2.0); EOS % 2.8 % (0-4.5); HEMATOCRIT 34.8 % (35.4-49); HEMOGLOBIN 11.7 GM/dL (11.7-16.9); LYMPH % 14.6 % (8-40); MCH 25.3 pg (25.7-33.7); MCHC 33.6 g/dl (32.0-35.9); MEAN CELL VOLUME 75.4 fl (80-96); MEAN PLT VOLUME 8.1 fl (7.5-11.1); NEUT % 71.7 % (42.8-82.8); PLATELET COUNT 230 10^3/uL (134-434); RBC 4.61 M/mm3 (4.00-5.60); WHITE BLOOD COUNT 7.3 K/mm3 (4.0-10.0)
[2021-07-28 07:40] LABS: ALBUMIN 3.5 g/dl (3.4-5.0); CALCIUM 8.6 mg/dL (8.5-10.1); MAGNESIUM 2.3 mg/dL (1.8-2.4)
[2021-07-28 07:44] LABS: CREATININE 0.8 mg/dL (0.55-1.3)
[2021-07-28 07:45] LABS: BILIRUBIN,TOTAL 1.1 mg/dL (0.2-1); TOT PROT 6.9 g/dl (6.4-8.2)
[2021-07-28] MEDS: ASPIRIN 81 MG CHEWABLE TABLETS PO SCH (11:46)
[2021-07-28] MEDS: amLODIPine BESYLATE 10 MG TABLET (FP) PO SCH (11:46)
[2021-07-28] MEDS: POLYETHYLENE GLYCOL (HEALTHYLAX) 3350 17 GM PACKET PO SCH ×3 (11:46→22:03)
[2021-07-28] MEDS: LIDOCAINE 5% TOPICAL PATCH TP SCH (11:46)
[2021-07-28] MEDS: LOSARTAN POTASSIUM 50 MG TABLET PO SCH (11:46)
[2021-07-28] MEDS: ATENOLOL 50 MG TABLET (FP) PO SCH (11:47)
[2021-07-28] MEDS: RIVAROXABAN 20 MG TABLET PO SCH (18:46)
[2021-07-28] MEDS: oxyCODONE HCL 5 MG TABLET PO PRN (20:41)
[2021-07-28] MEDS: DOCUSATE SODIUM 100 MG CAPSULE (FP) PO SCH (21:56)
[2021-07-28] MEDS: LIDOCAINE PATCH REMOVAL MC SCH (21:57)
[2021-07-28] MEDS: ATORVASTATIN CA 80 MG TABLET (FP) PO SCH (21:57)
[2021-07-28] MEDS: MELATONIN 5 MG TABLETS PO PRN (21:57)
[2021-07-28] MEDS ORDERED: SENNOSIDES 8.6MG TABLET (FP) PO SCH (22:00)
[2021-07-29 05:36] VITALS: TEMP 97.8
[2021-07-29] MEDS: LEVOTHYROXINE NA 100 MCG TABLET (FP) PO SCH ×2 (05:41→06:05)
[2021-07-29] MEDS: POLYETHYLENE GLYCOL (HEALTHYLAX) 3350 17 GM PACKET PO SCH (05:44)
[2021-07-29 08:19] VITALS: BP 137/79; PULSE 62
[2021-07-29 08:42] LABS: BASO % 0.9 % (0-2.0); EOS % 3.5 % (0-4.5); HEMOGLOBIN 12.4 GM/dL (11.7-16.9); LYMPH % 17.8 % (8-40); MCH 24.9 pg (25.7-33.7); MCHC 32.5 g/dl (32.0-35.9); MEAN CELL VOLUME 76.6 fl (80-96); MEAN PLT VOLUME 8.5 fl (7.5-11.1); MONO % 9.7 % (3.8-10.2); NEUT % 68.1 % (42.8-82.8); PLATELET COUNT 260 10^3/uL (134-434); RBC 4.96 M/mm3 (4.00-5.60); RDW 17.9 % (11.9-15.9); WHITE BLOOD COUNT 8.3 K/mm3 (4.0-10.0)
[2021-07-29 09:06] LABS: CALCIUM 8.7 mg/dL (8.5-10.1)
[2021-07-29 09:07] LABS: ALBUMIN 3.7 g/dl (3.4-5.0); BLOOD UREA NITROGEN 17.4 mg/dL (7-18)
[2021-07-29 09:12] LABS: TOT PROT 7.4 g/dl (6.4-8.2)
[2021-07-29] MEDS: amLODIPine BESYLATE 10 MG TABLET (FP) PO SCH (09:14)
[2021-07-29] MEDS: ASPIRIN 81 MG CHEWABLE TABLETS PO SCH (09:14)
[2021-07-29] MEDS: ATENOLOL 50 MG TABLET (FP) PO SCH (09:14)
[2021-07-29] MEDS: LOSARTAN POTASSIUM 50 MG TABLET PO SCH (09:14)
[2021-07-29] MEDS: LIDOCAINE 5% TOPICAL PATCH TP SCH (09:15)
== END 2021-07-29 10:32 | disposition home or self-care (01) ==
LOC: JER 16:41 → JERBED 22:01 → J4W 07-26 14:06
PROVIDERS: ADMIT Hospitalist; ATTEND Internal Medicine
DX: I25.10 Atherosclerotic heart disease of native coronary artery without angina pectoris (principal); R55 Syncope and collapse; I11.9 Hypertensive heart disease without heart failure; I21.4 Non-ST elevation (NSTEMI) myocardial infarction; I71.2 Thoracic aortic aneurysm, without rupture; I49.9 Cardiac arrhythmia, unspecified; E03.9 Hypothyroidism, unspecified; I48.91 Unspecified atrial fibrillation; Z79.01 Long term (current) use of anticoagulants; R61 Generalized hyperhidrosis; I45.10 Unspecified right bundle-branch block; R07.9 Chest pain, unspecified; Z85.46 Personal history of malignant neoplasm of prostate; Z95.5 Presence of coronary angioplasty implant and graft
CPT/HCPCS: 36415; 70450-TC; 71046-TC-FY; 71250-TC; 72125-TC; 72128-TC; 72131-TC; 80053; 80061; 81003; 82728; 83036; 83540; 83550; 83735; 84100; 84443; 84484; 85025; 85027; 85045; 87086; 93005; 93010; 93225; 93226; 93306-TC; 93880-TC; 97116-GP; 97161-GP; 99285-25; C9803-CS; G0378; U0003; U0005